=== PATIENT | male | born 1950 | race Native Hawaiian/Other Pacific Islander ===

== ENCOUNTER 2018-02-11 14:11 | Outpatient (CLI) | payer OTHER ==
[2018-02-11 14:47] LABS: PLATELET COUNT 255 K/uL (142-355)
== END 2018-02-11 22:20 | disposition home or self-care (01) ==
LOC: LAB 14:11
PROVIDERS: Orthopaedic Surgery
DX: Z79.01 Long term (current) use of anticoagulants (principal)
CPT/HCPCS: 85027

== ENCOUNTER 2018-02-14 12:26 | Outpatient (CLI) | payer OTHER ==
[2018-02-14 13:30] LABS: PLATELET COUNT 311 K/uL (142-355)
== END 2018-02-14 19:50 | disposition home or self-care (01) ==
LOC: LAB 12:26
PROVIDERS: Orthopaedic Surgery
DX: Z79.01 Long term (current) use of anticoagulants (principal)
CPT/HCPCS: 85027

== ENCOUNTER 2018-02-17 13:56 | Outpatient (CLI) | payer OTHER ==
[2018-02-17 14:28] LABS: PLATELET COUNT 375 K/uL (142-355)
== END 2018-02-17 22:54 | disposition home or self-care (01) ==
LOC: LAB 13:56
PROVIDERS: Orthopaedic Surgery
DX: Z96.642 Presence of left artificial hip joint (principal)
CPT/HCPCS: 85027

== ENCOUNTER 2018-09-12 12:24 | Outpatient (CLI) | payer OTHER | END 2018-09-12 21:42 | disposition home or self-care (01) | LOC: CT 12:24 | DX: M19.011 Primary osteoarthritis, right shoulder (principal) ==